=== PATIENT | female | born 1980 | race Caucasian/White ===

== ENCOUNTER 2018-04-03 18:11 | Observation (INO) ==
--- NOTE | 2018-04-03 19:04 | XR ---
EXAM DATE: 04/03/2018 6:59 PM EST AGE/SEX: 37 years / Female INDICATIONS: Shortness of breath amd chest pain. CLINICAL DATA: This is the patient's initial encounter. Patient reports that signs and symptoms have been present for 3 days and indicates a pain score of 4/10. MEDICAL/SURGICAL HISTORY: None. None. COMPARISON: [facility], CHEST SINGLE AP, 05/11/2013. . FINDINGS: No significant focal pleural or parenchymal opacities. The cardiomediastinal contours are unremarkabl e. Osseous structures are intact. CONCLUSION: 1. No acute cardiopulmonary disease. Electronically signed by: Armand Eckert MD Board Certified Radiologist 04/03/2018 7:02 PM JAKUB T
[2018-04-03 19:11] LABS: Baso # (Auto) 0.2 th/mm3 (0.0-0.2); Baso % (Auto) 1.2 % (0.0-2.0); Eos # (Auto) 0.1 th/mm3 (0.0-0.4); Eos % (Auto) 0.6 % (0.0-4.0); Hematocrit 47.3 % (35.0-46.0); Hemoglobin 15.1 gm/dL (11.6-15.3); Lymph # (Auto) 0.8 th/mm3 (1.0-4.8); Lymph % (Auto) 4.6 % (9.0-44.0); Mean Corpuscular Hemoglobin 29.1 pg (27.0-34.0); Mean Platelet Volume 9.3 fL (7.0-11.0); Mono # (Auto) 0.9 th/mm3 (0.0-0.9); Mono % (Auto) 5.2 % (0.0-8.0); Neut # (Auto) 15.4 th/mm3 (1.8-7.7); Neut % (Auto) 88.4 % (16.0-70.0); Platelet Count 385 th/mm3 (150-450); Red Blood Count 5.19 mil/mm3 (4.00-5.30); Red Cell Distribution Width 12.9 % (11.6-17.2); White Blood Count 17.4 th/mm3 (4.0-11.0)
--- NOTE | 2018-04-03 19:11 | ED ---
HPI General Chief complaint: Respiratory Symptoms Stated complaint: SOB x 3 days Time Seen by Provider: 04/03/18 18:38 Source: patient Mode of arrival: ambulatory Limitations: no limitations History of Present Illness HPI narrative: 37-year-old female patient with previous history of asthma presents to the ER today for 3 days history of cough, shortness of breath, sore throat, and thinks that her asthma is acting up. She has been using her nebulizers at home without significant relief, had gone to urgent care and they had given her a shot of dexamethasone and 2 nebulizers, sent her to the ER for further treatment. She denies any vomiting, fevers, or other symptoms. She states that she has had about 4 nebulizers total today. Modifying Factors: None Associated Signs & Symptoms: Wheezing, shortness of breath, coughing Risk Factors: Asthma history, previous hospitalization for asthma Related Data Home Medications Medication Instructions Recorded Confirmed albuterol sulfate 2 puff INHALATION Q4-6H PRN 04/03/18 04/03/18 albuterol sulfate 2.5 mg INHALATION Q4-6H PRN 04/03/18 04/03/18 doxycycline monohydrate 100 mg PO BID 04/03/18 04/03/18 ipratropium bromide 0.625 ml INHALATION Q6H 04/03/18 04/03/18 Allergies Allergy/AdvReac Type Severity Reaction Status Date / Time ceftriaxone Allergy Intermediate HIVES Verified 04/03/18 18:34 amoxicillin Allergy Unknown HIVES Verified 04/03/18 18:34 penicillin G Allergy Unknown HIVES Verified 04/03/18 18:34 Review of Systems ROS: all other systems reviewed are negative FOR[facility]LY [facility] Medical History Medical History Asthma (Acute) Surgical History Surgical History History of mandibular surgery (Acute) Social History Social History Substance History: No History of Abuse Smoking Status: Never smoker How Often Do You Have a Drink Containing Alcohol: 2 to 3 times a week Immunization History Tetanus Immunization: <5 Years Tetanus Immunization Year if Known: 2017 Exam Narrative Exam Narrative: GENERAL: Well-developed young female patient currently in moderate respiratory distress. Awake and oriented x3. SKIN: Focused skin assessment warm/dry. HEAD: Atraumatic. Normocephalic. EYES: Pupils equal and round. No scleral icterus. No injection or drainage. ENT: No nasal bleeding or discharge. Mucous membranes pink and moist. NECK: Trachea midline. No JVD. CARDIOVASCULAR: Fast and regular rhythm. No murmur appreciated. RESPIRATORY: Moderate accessory muscle use. Wheezing throughout bilaterally. Breath sounds equal bilaterally. GASTROINTESTINAL: Abdomen soft, non-tender, nondistended. Hepatic and splenic margins not palpable. MUSCULOSKELETAL: No obvious deformities. No clubbing. No cyanosis. No edema. NEUROLOGICAL: Awake and alert. No obvious cranial nerve deficits. Motor grossly within normal limits. Normal speech. PSYCHIATRIC: Appropriate mood and affect; insight and judgment normal. Course Initial Documented Vital Signs Temperature 98.7 F 04/03/18 18:29 Pulse Rate 135 H 04/03/18 18:29 Respiratory Rate 22 04/03/18 18:29 Blood Pressure 126/74 04/03/18 18:29 Pulse Oximetry 94 L 04/03/18 18:29 Last Documented Vital Signs Temperature 98.7 F 04/03/18 18:29 Pulse Rate 120 H 04/03/18 20:03 Respiratory Rate 24 04/03/18 19:08 Blood Pressure 126/74 04/03/18 18:29 Pulse Oximetry 95 04/03/18 20:03 Sign Out Sign Out Data: Patient Sign Out occurred on 04/03/18 at 19:21. Patient's care was discussed, and care was transferred from Kaycee Chris MD to Jerry Fowler MD. Sign Out Comment: Case is signed out to Dr. Fowler at 7 PM awaiting nebulizer treatment and reevaluation. Disposition based on reevaluation. Last updated by Kaycee Chris MD at 04/03/18 19:12 Post-Handoff Eval: 37-year-old woman with ongoing shortness of breath cough attributed to asthma exacerbation. She continues to have tachypnea, labored breathing. Oxygen saturations are adequate. She is a history of asthma with severe asthma she was a child, has not had a severe exacerbation some time. She recently completed a two-week course of prednisone. She has had will bit of sore throat 3 or 4 days ago, progressed to more cough and congestion recently. She has had continued shortness of breath, especially severe today. She went to an urgent care, received a parenteral dexamethasone injection, multiple breathing treatments they are, and throughout the day. Continues have worsening symptoms now. Would recommend admission. Reviewed EKG, some suggestion of ST changes in the setting of sinus tachycardia. Given that she has what appears to be asthma with shortness of breath and chest tightness not improving with standard treatment, sinus tachycardia tachypnea and ST changes, a little bit increased concern for PE. She is not on estrogens. Will check a d-dimer. We will also check an influenza test. We will plan on admission. Medical Decision Making MDM Narrative Medical decision making narrative: Additional nebulizers were given to the patient in the ER. Chest x-ray did not show any signs of acute pulmonary processes. Medical Screen Exam Complete: Yes Emergency Medical Condition: Yes Differential Diagnosis Differential Diagnosis: Asthma exacerbation versus pneumonia is bronchitis Lab Data Result diagrams: 04/03/18 19:00 04/03/18 19:00 Lab Results 04/03/18 04/03/18 04/03/18 Range/Units 19:00 19:00 19:45 CBC w Diff Slide review pending WBC 17.4 H (4.0-11.0) th/mm3 RBC 5.19 (4.00-5.30) mil/mm3 Hgb 15.1 (11.6-15.3) gm/dL Hct 47.3 H (35.0-46.0) % MCV 91.0 (80.0-100.0) fL MCH 29.1 (27.0-34.0) pg MCHC 32.0 (32.0-36.0) % RDW 12.9 (11.6-17.2) % Plt Count 385 (150-450) th/mm3 MPV 9.3 (7.0-11.0) fL Neut % (Auto) 88.4 H (16.0-70.0) % Lymph % (Auto) 4.6 L (9.0-44.0) % [place] % (Auto) 5.2 (0.0-8.0) % Eos % (Auto) 0.6 (0.0-4.0) % Baso % (Auto) 1.2 (0.0-2.0) % Neut # (Auto) 15.4 H (1.8-7.7) th/mm3 Lymph # (Auto) 0.8 L (1.0-4.8) th/mm3 [place] # (Auto) 0.9 (0.0-0.9) th/mm3 Eos # (Auto) 0.1 (0.0-0.4) th/mm3 Baso # (Auto) 0.2 (0.0-0.2) th/mm3 WBC Differential . Diff Scan Auto diff confirmed Differential Comment . Platelet Estimate Normal (Normal) Platelet Morphology Normal (Normal) RBC Morphology Normal (Normal) D-Dimer Quant (PE/DVT) 0.27 (0.00-0.50) mg/L FEU Sodium 138 (136-145) meq/L Potassium 3.9 (3.5-5.1) meq/L Chloride 105 (98-107) meq/L Carbon Dioxide 22.8 (21.0-32.0) meq/L Anion Gap 10 (5-15) meq/L BUN 10 (7-18) mg/dL Creatinine 0.60 (0.50-1.00) mg/dL Estimated GFR Greater than 89 (>89) mL/min Random Glucose 121 H (74-106) mg/dL Calcium 9.3 (8.5-10.1) mg/dL Total Bilirubin 0.4 (0.2-1.0) mg/dL AST 19 (15-37) U/L ALT 21 (10-53) U/L Alkaline Phosphatase 49 (45-117) U/L Total Protein 8.5 H (6.4-8.2) g/dL Albumin 4.1 (3.4-5.0) g/dL Imaging Data Attestation: I personally reviewed and interpreted this imaging study as follows : Radiologist's impression: Chest X-Ray 04/03/18 18:38 CONCLUSION: 1. No acute cardiopulmonary disease. ECG Data Attestation: I personally reviewed and interpreted this ECG as follows: Interpretation: EKG shows sinus tachycardia at a rate of 120 bpm. Discharge Plan Discharge Disposition Patient Disposition: ED Admit(ED Internal Use Only) Discharge Order Discharge Orders: ED Use Only Admit Order (Routine); Ordered 04/03/18 Ordered By: Jerry Fowler Discharge Details Diagnosis: Asthma attack Physicians Team ED Provider: Jerry Fowler Primary Care Provider: Primary Care Physici,No Rxs /Orders / Referrals /Forms Prescriptions: No Action albuterol sulfate 1.25 mg/3 mL Solution For Nebulization 2.5 mg INHALATION Q4-6H PRN (Reason: Shortness Of Breath Or Wheezing) RF: 0 doxycycline monohydrate 100 mg Capsule 100 mg PO BID RF: 0 albuterol sulfate 90 mcg/actuation Hfa Aerosol Inhaler 2 puff INHALATION Q4-6H PRN (Reason: Shortness Of Breath Or Wheezing) RF: 0 ipratropium bromide 0.02 % Solution 0.625 ml INHALATION Q6H RF: 0 Status ED Status: With Doctor
[2018-04-03 19:30] LABS: Platelet Estimate Normal (Normal); Platelet Morphology Normal (Normal); RBC Morphology Normal (Normal)
[2018-04-03] MEDS ORDERED: Ketorolac Inj 30 MG/ML (IVP) Vial IV.PUSH ONE (19:32)
[2018-04-03 19:38] LABS: Chloride 105 meq/L (98-107); Potassium 3.9 meq/L (3.5-5.1); Sodium 138 meq/L (136-145)
[2018-04-03 19:41] LABS: Calcium 9.3 mg/dL (8.5-10.1)
[2018-04-03 19:42] LABS: Albumin 4.1 g/dL (3.4-5.0); Anion Gap 10 meq/L (5-15); Blood Urea Nitrogen 10 mg/dL (7-18); Carbon Dioxide 22.8 meq/L (21.0-32.0); Glucose,Random 121 mg/dL (74-106)
[2018-04-03 19:45] LABS: Alanine Aminotransferase 21 U/L (10-53); Aspartate Aminotransferase 19 U/L (15-37); Glomerular Filtration Rate Greater Than 89 mL/min (>89)
[2018-04-03 19:47] LABS: Total Protein 8.5 g/dL (6.4-8.2)
[2018-04-03 19:48] LABS: Alkaline Phosphatase 49 U/L (45-117)
[2018-04-03] MEDS ORDERED: Bisacodyl 10 MG Supp RECTAL PRN (20:41)
[2018-04-03] MEDS ORDERED: Acetaminophen 325 MG Tablet PO PRN (20:41)
[2018-04-03] MEDS ORDERED: MethylPREDNISolone Sod Succinate Inj 40 MG/ML Vial IV.PUSH ONE (20:51)
[2018-04-03] MEDS ORDERED: LORazepam 0.5 MG Tablet PO ONE (23:47)
[2018-04-04] MEDS: Senna/Docusate Sodium 8.6/50 MG Tablet PO SCH ×3 (00:23→21:24)
[2018-04-04] MEDS: MethylPREDNISolone Sod Succinate Inj 125 MG/2 ML Vial IV.PUSH SCH ×4 (06:43→23:40)
--- NOTE | 2018-04-04 08:46 | P.HPIM ---
History of Present Illness Primary Care Physician: No Primary Care Physician Chief Complaint: Shortness of breath , wheezing History of Present Illness: 37-year-old white female with a history of asthma presents to the urgency room with a 3-day history of productive cough with whitish sputum, intermittent chills or fever with worsening shortness of breath despite using home breathing treatments. Apparently, patient went to urgent care center yesterday morning and had a dose of steroids and prescription of additional Atrovent and doxycycline. Despite these 2 new medications, patient reported she continued to be more short of breath with more wheezing and therefore came to the emergency room for further evaluation yesterday. Overnight, patient reports continued wheezing but states shortness of breath has improved. She has not had previous intubations. She has had multiple hospitalizations when she was a child for asthma. Diagnosis (1) Asthma attack: Review of Systems Constitutional: Reports as per HPI, Reports chills, Reports fatigue, Reports fever(s) and Denies headache(s) Eyes: Denies blurry vision, Denies change in vision and Denies eye pain Ears, Nose, Mouth, and Throat: Denies abnormal hearing, Denies headache(s), Denies mouth pain, Denies nasal congestion, Denies neck pain and Denies sore throat Cardiovascular: Denies chest pain, Denies pedal edema, Denies palpitations and Denies dyspnea Respiratory: Denies change in phlegm color, Reports chest congestion, Reports cough, Denies pain with cough, Reports dyspnea, Denies stridor and Reports wheezing Gastrointestinal: Denies abdominal pain, Denies constipation, Denies loose stools, Denies nausea and Denies vomiting Musculoskeletal: Denies back pain, Denies myalgias, Denies arthralgias, Denies neck pain and Denies numbness Skin/Breast: Denies new lesions and Denies rash Neurologic: Denies abnormal hearing, Denies headache(s), Denies focal weakness, Denies memory loss and Denies numbness Psychiatric: Denies anxiety, Denies depression and Denies memory loss Endocrine: Denies cold intolerance, Denies heat intolerance and Denies palpitations Hematologic/Lymphatic: Denies easy bleeding and Denies easy bruising PMF Medical History Medical History Asthma (Chronic) Surgical History Surgical History History of mandibular surgery (Chronic) Family History Family History Father Asthma Social History Social History Substance History: No History of Abuse Second Hand Smoke Exposure: No Smoking Status: Never smoker How Often Do You Have a Drink Containing Alcohol: 2 to 3 times a week Immunization History Tetanus Immunization: <5 Years Tetanus Immunization Year if Known: 2016 Hx Influenza Vaccine This Season: No Medications and Allergies Allergies Allergy/AdvReac Type Severity Reaction Status Date / Time ceftriaxone Allergy Intermediate HIVES Verified 04/03/18 18:34 amoxicillin Allergy Unknown HIVES Verified 04/03/18 18:34 penicillin G Allergy Unknown HIVES Verified 04/03/18 18:34 Home Medications Medication Instructions Recorded Confirmed Type albuterol sulfate 2 puff INHALATION Q4-6H PRN 04/03/18 04/03/18 History albuterol sulfate 2.5 mg INHALATION Q4-6H PRN 04/03/18 04/03/18 History doxycycline monohydrate 100 mg PO BID 04/03/18 04/03/18 History ipratropium bromide 0.625 ml INHALATION Q6H 04/03/18 04/03/18 History methylprednisolone [Medrol (Mehul)] 10 mg PO PER PKG DIR 04/03/18 04/03/18 History Active Medications: Active Medications Acetaminophen (Tylenol) 650 mg PO Q4H PRN PRN Reason: Temp > 100.4 Al Hydroxide/Mg Hydroxide (Milk Of Magnesia Liq) 30 ml PO Q12H PRN PRN Reason: Mild Constipation Albuterol (Albuterol Neb (Prn)) 2.5 mg NEB Q2HR NEB PRN PRN Reason: SHORTNESS OF BREATH Last Admin: 04/04/18 08:05 Dose: 2.5 mg Bisacodyl (Dulcolax Supp) 10 mg RECTAL DAILY PRN PRN Reason: SEVERE CONSITIPATION Ipratropium [place] (Atrovent Neb) 0.5 mg NEB Q6HR NEB [facility] Last Admin: 04/04/18 07:34 Dose: 0.5 mg Lactulose (Lactulose Liq) 30 ml PO DAILY PRN PRN Reason: SEVERE CONSITIPATION Methylprednisolone Sodium Succinate (Solumedrol Inj) 60 mg IV.PUSH Q6H [facility] Last Admin: 04/04/18 06:43 Dose: 60 mg Ondansetron HCl (Zofran Inj) 4 mg IV.PUSH Q6H PRN PRN Reason: NAUSEA OR VOMITING Senna/Docusate Sodium (Sherri-Colace) 1 tab PO BID [facility] Last Admin: 04/04/18 00:23 Dose: Not Given Sennosides (Senokot) 17.2 mg PO Q12H PRN PRN Reason: Moderate Constipation Sodium Chloride (Ns Flush) 2 ml IV.FLUSH BID [facility] Last Admin: 04/04/18 00:23 Dose: 2 ml Sodium Chloride (Ns Flush) 2 ml IV.FLUSH PRN PRN PRN Reason: FLUSH AFTER USING IV ACCESS Physical Exam Vital signs: Last Vital Signs Temp 98.2 F 04/04/18 04:00 Pulse 120 H 04/04/18 08:06 Resp 20 04/04/18 08:06 BP 122/76 04/04/18 04:00 Pulse Ox 91 L 04/04/18 07:35 Intake & Output 04/02/18 04/03/18 04/04/18 04/05/18 06:59 06:59 06:59 06:59 Weight 48.5 kg Narrative: GENERAL: Well-nourished well-developed pleasant female no acute distress SKIN: Warm and dry. HEAD: Atraumatic. Normocephalic. EYES: Pupils equal and round. No scleral icterus. No injection or drainage. ENT: No nasal bleeding or discharge. Mucous membranes pink and moist. NECK: Trachea midline. No JVD. CARDIOVASCULAR: Regular rate and rhythm. RESPIRATORY: Minimal accessory muscle use. Diffuse expiratory wheezes bilaterally GASTROINTESTINAL: Abdomen soft, non-tender, nondistended. Hepatic and splenic margins not palpable. Normoactive bowel sounds MUSCULOSKELETAL: Extremities without clubbing, cyanosis, or edema. No obvious deformities. NEUROLOGICAL: Awake and alert to person place time situation. No obvious cranial nerve deficits. Motor grossly within normal limits. Five out of 5 muscle strength in the arms and legs. Normal speech. PSYCHIATRIC: Appropriate mood and affect; insight and judgment normal. Results Labs CBC & Chem 7: 04/03/18 19:00 04/03/18 19:00 Imaging Impressions Chest X-Ray 04/03/18 18:38 CONCLUSION: 1. No acute cardiopulmonary disease. Caprini VTE Risk Assessment Caprini VTE Risk Assessment: No/Low Risk (score <= 1) Caprini Risk Assessment Model: Point Value = 1 Point Value = 2 Point Value = 3 Point Value = 5 Age 41-60 Minor surgery BMI > 25 kg/m2 Swollen legs Varicose veins or History of unexplained or recurrent spontaneous Oral contraceptives or hormone replacement Sepsis (< 1 month) Serious lung disease, including pneumonia (< 1 month) Abnormal pulmonary function Acute myocardial infarction Congestive heart failure (< 1 month) History of inflammatory bowel disease Medical patient at bed rest Age 61-74 Arthroscopic surgery Major open surgery (> 45 min) Laparoscopic surgery (> 45 min) Malignancy Confined to bed (> 72 hours) Immobilizing plaster cast Central venous access Age >= 75 History of VTE Family history of VTE Factor V Leiden Prothrombin [id number] Lupus anticoagulant Anticardiolipin antibodies Elevated serum homocysteine Heparin-induced thrombocytopenia Other congenital or acquired thrombophilia Stroke (< 1 month) Elective arthroplasty Hip, pelvis, or leg fracture Acute spinal cord injury (< 1 month) Prophylaxis Regimen: Total Risk Factor Score Risk Level Prophylaxis Regimen 0-1 Low Early ambulation 2 Moderate Order ONE of the following: *Sequential Compression Device (SCD) *Heparin 5000 units SQ BID 3-4 Higher Order ONE of the following medications: *Heparin 5000 units SQ TID *Enoxaparin/Lovenox 40 mg SQ daily (WT < 150 kg, CrCl > 30 mL/min) *Enoxaparin/Lovenox 30 mg SQ daily (WT < 150 kg, CrCl > 10-29 mL/min) *Enoxaparin/Lovenox 30 mg SQ BID (WT < 150 kg, CrCl > 30 mL/min) AND/OR *Sequential Compression Device (SCD) 5 or more Highest Order ONE of the following medications: *Heparin 5000 units SQ TID (Preferred with Epidurals) *Enoxaparin/Lovenox 40 mg SQ daily (WT < 150 kg, CrCl > 30 mL/min) *Enoxaparin/Lovenox 30 mg SQ daily (WT < 150 kg, CrCl > 10-29 mL/min) *Enoxaparin/Lovenox 30 mg SQ BID (WT < 150 kg, CrCl > 30 mL/min) AND *Sequential Compression Device (SCD) Assessment and Plan (1) Asthma attack: Code(s): J45.901 - Unspecified asthma with (acute) exacerbation Status: Acute Attending Attestation 37-year-old white female with a history of asthma presents with persistent shortness of breath, wheezes despite being seen at local urgent care and given steroids. Acute asthma exacerbationcontinue with Solu-Medrol 60 IV every 6, DuoNeb treatments, Zithromax, influenza antigen negative Leukocytosislikely due to recent steroids given along with likely underlying upper respiratory infection, will monitor. DVT prophylaxisno mechanical or pharmaceutical VTE prophalaxis administered due to patient's low risk assessment of VTE. Encouraged ambulation. H&P: Quality VTE Deep Vein Thrombosis/Pulmonary Embolism Present on Admission: No _ (1) Asthma attack Qualifiers: Asthma persistence: Asthma severity:
[2018-04-04] MEDS ORDERED: Ketorolac Inj 30 MG/ML (IVP) Vial IV.PUSH PRN (09:00)
[2018-04-04] MEDS ORDERED: Acetaminophen 325 MG Tablet PO PRN (09:00)
[2018-04-04] MEDS: Azithromycin 250 MG Tablet PO SCH (10:00)
[2018-04-04] MEDS: guaiFENesin/Dextromethorphan 200 MG/20 MG 10 ML UDC PO PRN ×2 (10:04→17:01)
--- NOTE | 2018-04-04 18:24 | ECG ---
Date Performed: 04/03/2018 Time Performed: 18:22:29 PTAGE: 37 years EKG: SINUS TACHYCARDIA WITH SHORT ND INTERVAL POSSIBLE RIGHT VENTRICULAR CONDUCTION DELAY MODERA TE ST DEPRESSION ABNORMAL ECG PREVIOUS TRACING : 05/11/2013 19.46 Since the previous tracing, no significant change noted DOCTOR: Jeremi Linda Interpretating Date/Time 04/04/2018 18:23:12
[2018-04-04] MEDS: Ketorolac Inj 30 MG/ML (IVP) Vial IV.PUSH PRN (21:24)
[2018-04-05] MEDS: Ketorolac Inj 30 MG/ML (IVP) Vial IV.PUSH PRN (05:59)
[2018-04-05] MEDS: MethylPREDNISolone Sod Succinate Inj 125 MG/2 ML Vial IV.PUSH SCH (06:00)
--- NOTE | 2018-04-05 08:16 | P.PNIM ---
Subjective Interval history: Follow up asthma with exacerbation. Patient seen and examined, lying in bed comfortably. Feels much improved. Wheezing improved. Breathing well. Continued on steroids. Will dc home. 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 Encourage rest. Take abx and steroids to completion. Physical Exam Vital signs: Vital Signs 04/04/18 11:16 04/04/18 12:00 04/04/18 15:25 Temperature 97.5 F L Pulse Rate 108 H 100 H 75 Respiratory Rate 16 20 16 Blood Pressure 114/70 Pulse Oximetry 94 L 04/04/18 15:34 04/04/18 19:00 04/04/18 19:32 Temperature 97.4 F L Pulse Rate 117 H 115 H Respiratory Rate 20 20 Blood Pressure 135/70 Pulse Oximetry 90 L 95 04/04/18 20:00 04/04/18 23:00 04/05/18 00:00 Temperature 98.5 F 98.1 F Pulse Rate 122 H 110 H 114 H Respiratory Rate 22 20 20 Blood Pressure 109/69 129/63 Pulse Oximetry 91 L 98 04/05/18 03:45 04/05/18 08:00 Temperature Pulse Rate 110 H Respiratory Rate 18 Blood Pressure Pulse Oximetry 94 L Intake & Output 04/04/18 04/05/18 04/05/18 18:59 06:59 18:59 Intake Total 802 / 802 480 / 480 Balance 802 / 802 480 / 480 Weight 48.8 kg Intake: Oral 802 / 802 480 / 480 Other: # Voids 3 3 Narrative: GENERAL: Well-nourished well-developed pleasant female no acute distress SKIN: Warm and dry. HEAD: Atraumatic. Normocephalic. EYES: Pupils equal and round. No scleral icterus. No injection or drainage. ENT: No nasal bleeding or discharge. Mucous membranes pink and moist. NECK: Trachea midline. No JVD. CARDIOVASCULAR: Regular rate and rhythm. RESPIRATORY: Minimal accessory muscle use. CTA GASTROINTESTINAL: Abdomen soft, non-tender, nondistended. Hepatic and splenic margins not palpable. Normoactive bowel sounds MUSCULOSKELETAL: Extremities without clubbing, cyanosis, or edema. No obvious deformities. NEUROLOGICAL: Awake and alert to person place time situation. No obvious cranial nerve deficits. Motor grossly within normal limits. Five out of 5 muscle strength in the arms and legs. Normal speech. PSYCHIATRIC: Appropriate mood and affect; insight and judgment normal. Results - Labs CBC & Chem 7: 04/03/18 19:00 04/03/18 19:00 Assessment and Plan - Assessment (1) Asthma attack Code(s): J45.901 - Unspecified asthma with (acute) exacerbation Status: Acute - Plan 37-year-old white female with a history of asthma presents with persistent shortness of breath, wheezes despite being seen at local urgent care and given steroids. Acute asthma exacerbation. Improved. Continue steroids PO. Duonebs at home. Continue Doxycycline. Influenza antigen negative Leukocytosislikely due to recent steroids given along with likely underlying upper respiratory infection, no fever overnight. DVT prophylaxisno mechanical or pharmaceutical VTE prophylaxis administered due to patient's low risk assessment of VTE. Ambulation. DC home. Follow up PCP. Regular diet. Activity as tolerated. RX as written. Stable and agreeable to the plan.
[2018-04-05] MEDS: Senna/Docusate Sodium 8.6/50 MG Tablet PO SCH (08:30)
[2018-04-05] MEDS ORDERED: Ketorolac 10 MG Tablet PO PRN (08:31)
[2018-04-05] MEDS: Azithromycin 250 MG Tablet PO SCH (08:56)
== END 2018-04-05 11:38 | disposition home or self-care (01) ==
LOC: PHED 18:11 → PHEDA 18:11 → PH3 22:16
PROVIDERS: ADMIT Internal Medicine; ATTEND Internal Medicine
CPT/HCPCS: 71010; 71045; 80053; 85025; 85379; 87275; 87276; 87804; 90774; 90775; 93005; 94640; 94664; 94665; 96374; 96375; 96376; 99285; C8952; G0378; J1885; J2060; J2920; J2930